=== PATIENT | female | born 1990 | race Two or more races ===

== ENCOUNTER 2020-01-31 18:42 | Emergency (ER) | payer BC ==
[~2020-01-31] VITALS: Ht 170.2 cm; Wt 74.8 kg
--- NOTE | 2020-01-31 18:50 | NUR ---
PATIENT TO ER #[id number]
[2020-01-31] MEDS ORDERED: ALBU90AE INH (18:56)
[2020-01-31 18:57] VITALS: BP_SYST 107
[2020-01-31] MEDS ORDERED: BACITRACIN 1 GM OINT TP ONE (19:00)
[2020-01-31] MEDS ORDERED: DIPH-TET-PERTUS Vaccine 0.5 ML VIAL (ADACEL) I.M. ONE (19:00)
--- NOTE | 2020-01-31 19:08 | NUR ---
PATIENT PRESENTS TO THE ER WITH HX OF DOG BITE TO LEFT LATERAL HAND AT 1445 TODAY; PATIENT WAS HANDLING A PUPPY OF A CLIENT AT A VET CLINIC AND WAS BITTEN; NO OTHER TRAUMA, NO OTHER REMARKABLE S/S; FULL DISTAL N/C/R IS INTACT
--- NOTE | 2020-01-31 19:38 | NUR ---
AMIMAL BITE FORM FAXED
--- NOTE | 2020-01-31 19:38 | NUR ---
Patient given written and verbal discharge instructions and verbalizes understanding. ER MD discussed with patient the results and treatment provided. Patient in stable condition. ID arm band removed. Rx of AUGMENTIN/TYLENOL given. Patient educated on pain management and to follow up with PMD. Pain Scale . Opportunity for questions provided and answered. Medication side effect fact sheet provided.
== END 2020-01-31 19:38 | disposition home or self-care (01) ==
LOC: SED 18:42
DX: S61.452A Open bite of left hand, initial encounter (principal); J45.909 Unspecified asthma, uncomplicated; W54.0XXA Bitten by dog, initial encounter; Y93.89 Activity, other specified; Y92.89 Other specified places as the place of occurrence of the external cause; Y99.8 Other external cause status
CPT/HCPCS: 90715; 99283